=== PATIENT | male | born 1980 ===

== ENCOUNTER 2021-05-07 09:50 | Emergency (ER) | payer OTHER ==
[2021-05-07 10:01] VITALS: BP 138/94
[2021-05-07] MEDS ORDERED: traMADol 50 MG TAB PO ONE (10:39)
[2021-05-07] MEDS ORDERED: IBUPROFEN 600 MG TAB PO ONE (10:39)
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
== END 2021-05-07 11:53 | disposition home or self-care (01) ==
LOC: ED 09:50
DX: S29.012A Strain of muscle and tendon of back wall of thorax, initial encounter (principal); R07.89 Other chest pain; V87.7XXA Person injured in collision between other specified motor vehicles (traffic), initial encounter; Y93.89 Activity, other specified; Y92.488 Other paved roadways as the place of occurrence of the external cause; Y99.8 Other external cause status
CPT/HCPCS: 99282